=== PATIENT | female | born 1990 | race Caucasian/White ===

== ENCOUNTER 2017-04-23 17:11 | Emergency (ER) | payer OTHER ==
[~2017-04-23] VITALS: Ht 167.6 cm; Wt 85.7 kg
[~2017-04-23 17:11] MED LIST: DIAZ2TAB PO; GABA600T2 PO; HYDR-3138 PO; NORE1TAB PO; SCOP1PAT ID
[2017-04-23] MEDS ORDERED: ACID REFLUX MED PO (17:39)
[2017-04-23] MEDS ORDERED: KETOROLAC 30 MG/1 ML ONE (17:50)
[2017-04-23] MEDS ORDERED: KETOROLAC 30 MG/1 ML IM ONE (18:00)
[2017-04-23 19:19] VITALS: BP 116/83
== END 2017-04-23 19:07 | disposition home or self-care (01) ==
LOC: ED 18:28
DX: S39.012A Strain of muscle, fascia and tendon of lower back, initial encounter (principal); S29.012A Strain of muscle and tendon of back wall of thorax, initial encounter; V43.52XA Car driver injured in collision with other type car in traffic accident, initial encounter; Y93.89 Activity, other specified; Y92.89 Other specified places as the place of occurrence of the external cause; Y99.8 Other external cause status
CPT/HCPCS: 72072; 72110; 72125; 96372; 99284; J1885

== ENCOUNTER → 2018-12-15 | Outpatient (CLI) | payer OTHER ==
[~2018-12-15] MED LIST changes: +ACID REFLUX MED PO; -GABA600T2 PO; +GABA600T7 PO; -HYDR-3138 PO; +HYDR-3237 PO; -SCOP1PAT ID; +SCOP1PAT11 ID
== END | disposition home or self-care (01) ==
LOC: CFH 06:45
PROVIDERS: ATTEND Physician Assistant
DX: K76.9 Liver disease, unspecified (principal); E78.5 Hyperlipidemia, unspecified; E55.9 Vitamin D deficiency, unspecified; G43.909 Migraine, unspecified, not intractable, without status migrainosus; J45.998 Other asthma
CPT/HCPCS: 76700

== ENCOUNTER 2019-01-11 15:13 | Outpatient (CLI) | payer OTHER ==
[2019-01-11] MEDS ORDERED: RANI150T4 PO (15:48)
[2019-01-11] MEDS ORDERED: CYCL5TAB PO (15:48)
[2019-01-11] MEDS ORDERED: OMEP20TA62 PO (15:48)
[2019-01-11] MEDS ORDERED: DICY10CA3 PO (15:48)
[2019-01-11] MEDS ORDERED: PROP80TA PO (15:48)
[2019-01-11] MEDS ORDERED: PANTOPRAZOLE PO-COUM (15:48)
== END 2019-01-11 23:59 | disposition home or self-care (01) ==
LOC: STAR 15:13
PROVIDERS: ATTEND Thoracic Surgery (Cardiothoracic Vascular Surgery)
DX: Z02.9 Encounter for administrative examinations, unspecified (principal)

== ENCOUNTER 2019-01-19 05:46 | Observation (INO) | payer OTHER ==
[~2019-01-19] VITALS: Ht 167.6 cm; Wt 80.9 kg
[~2019-01-19 05:46] MED LIST changes: +CYCL5TAB PO; +DICY10CA3 PO; +OMEP20TA62 PO; +PANTOPRAZOLE PO-COUM; +PROP80TA PO; +RANI150T4 PO
[2019-01-19] MEDS ORDERED: LACTATED RINGERS 1,000 ML IV SCH (06:35)
[2019-01-19 06:40] VITALS: BP 97/65
[2019-01-19] MEDS ORDERED: BUPIVACAINE/PF-EPI 0.5% 1:200K ONE (06:48)
[2019-01-19] MEDS ORDERED: FENTANYL PF 250 MCG/5ML ONE (07:01)
[2019-01-19] MEDS ORDERED: MIDAZOLAM 1 MG/ML, 2ML ONE (07:01)
[2019-01-19] MEDS ORDERED: GABAPENTIN 300 MG CAPSULE ONE ×2 (07:06→10:16)
[2019-01-19] MEDS ORDERED: APREPITANT 40 MG CAPSULE ONE ×2 (07:06→10:16)
[2019-01-19] MEDS ORDERED: PROPOFOL 50 ML ONE (07:17)
[2019-01-19] MEDS ORDERED: PROPOFOL 10 MG/ML, 20ML ONE (07:57)
[2019-01-19] MEDS ORDERED: ROCURONIUM 10MG/ML,5ML ONE (07:57)
[2019-01-19] MEDS ORDERED: ONDANSETRON 2MG/ML, 2ML ONE (07:57)
[2019-01-19] MEDS ORDERED: CEFOTETAN PMX 2GM/50ML 50 ML ONE (07:57)
[2019-01-19] MEDS ORDERED: PHENYLEPHRINE 10 MG/ML ONE (07:57)
[2019-01-19] MEDS ORDERED: DEXAMETHASONE 4 MG/ML, 1ML ONE (07:57)
[2019-01-19] MEDS ORDERED: LIDOCAINE-MPF 2% ,5ML ONE (07:57)
[2019-01-19] MEDS ORDERED: HYDROmorphone 2 MG/ML, 1ML IVPush PRN (08:00)
[2019-01-19] MEDS ORDERED: OXYcodone 5 MG/5 ML ORAL.SOL UDC PO PRN (08:00)
[2019-01-19] MEDS ORDERED: PROMETHAZINE 25 MG/ML, 1ML IV PRN (08:00)
[2019-01-19] MEDS ORDERED: ACETAMINOPHEN 325 MG TABLET PO PRN (08:00)
[2019-01-19] MEDS ORDERED: HALOPERIDOL 5 MG/ML IV PRN (08:00)
[2019-01-19] MEDS ORDERED: MEPERIDINE/PF 25MG/0.5ML IVPush PRN (08:00)
[2019-01-19] MEDS ORDERED: FENTANYL PF 100 MCG/2ML ONE ×2 (08:20→09:14)
[2019-01-19] MEDS ORDERED: SUGAMMADEX 200 MG/2 ML IVPush ONE (08:28)
[2019-01-19] MEDS: LACTATED RINGERS 1,000 ML IV SCH ×2 (08:44→16:44)
[2019-01-19] MEDS ORDERED: HYDROcodone/APAP 7.5-325MG/15ML UDC PO PRN (09:00)
[2019-01-19] MEDS ORDERED: HALOPERIDOL 5 MG/ML ONE (09:14)
[2019-01-19] MEDS: FENTANYL PF 100 MCG/2ML IV PRN ×2 (09:19→09:35)
[2019-01-19] MEDS: HYDROcodone/APAP 7.5-325MG/15ML UDC PO PRN ×3 (11:03→19:56)
[2019-01-19] MEDS: morphine SULFATE 10 MG/ML, 1ML IVPush PRN ×3 (13:08→22:51)
[2019-01-19] MEDS ORDERED: SCOPOLAMINE PATCH, 1.5MG PATCH.TD72 TD ONE ×2 (13:45→14:00)
[2019-01-19] MEDS ORDERED: PROMETHAZINE 25 MG/ML, 1ML IM ONE (14:00)
[2019-01-19] MEDS ORDERED: HYDROcodone/APAP 7.5-325MG/15ML UDC ONE (15:30)
[2019-01-19 18:00] VITALS: BP 108/77
[2019-01-19 19:21] VITALS: BP 118/79
[2019-01-19] MEDS: ONDANSETRON 2MG/ML, 2ML IVPush PRN (19:54)
[2019-01-20] MEDS: LACTATED RINGERS 1,000 ML IV SCH ×3 (00:44→16:12)
[2019-01-20 01:15] VITALS: BP 102/65
[2019-01-20] MEDS: ONDANSETRON 2MG/ML, 2ML IVPush PRN (02:03)
[2019-01-20] MEDS: morphine SULFATE 10 MG/ML, 1ML IVPush PRN ×5 (02:04→21:27)
[2019-01-20 04:44] VITALS: BP 104/69
[2019-01-20] MEDS: HYDROcodone/APAP 7.5-325MG/15ML UDC PO PRN (05:12)
[2019-01-20 07:15] VITALS: BP 114/74
[2019-01-20] MEDS ORDERED: DIPHENHYDRAMINE 50 MG/ML, 1ML IVPush PRN (09:30)
[2019-01-20] MEDS ORDERED: DIPHENHYDRAMINE 12.5MG/5ML, 10ML UDC PO PRN (09:30)
[2019-01-20] MEDS ORDERED: OXYC5CAP2 PO (09:44)
[2019-01-20] MEDS ORDERED: HYDR15SO3 PO (09:48)
[2019-01-20] MEDS: OXYcodone IR 5MG TABLET PO PRN ×4 (11:17→20:09)
[2019-01-20 13:15] VITALS: BP 115/75
[2019-01-20 19:02] VITALS: BP 106/79
[2019-01-21] MEDS: OXYcodone IR 5MG TABLET PO PRN ×5 (00:18→17:01)
[2019-01-21 00:33] VITALS: BP 101/74
[2019-01-21] MEDS: LACTATED RINGERS 1,000 ML IV SCH ×3 (00:44→15:05)
[2019-01-21] MEDS: morphine SULFATE 10 MG/ML, 1ML IVPush PRN (02:56)
[2019-01-21 07:40] VITALS: BP 113/78
[2019-01-21 14:15] VITALS: BP 120/84
== END 2019-01-21 17:40 | disposition home or self-care (01) ==
LOC: OUT 05:46 → ORIP 09:12 → 4NOR 17:49
PROVIDERS: ADMIT Thoracic Surgery (Cardiothoracic Vascular Surgery); ATTEND Thoracic Surgery (Cardiothoracic Vascular Surgery)
DX: K44.9 Diaphragmatic hernia without obstruction or gangrene (principal); K21.9 Gastro-esophageal reflux disease without esophagitis; K82.8 Other specified diseases of gallbladder
CPT/HCPCS: 43280; 47562; 88304; 96374; 96375; 96376; G0378; J1100; J1630; J2250; J2270; J2370; J2405; J2550; J2704; J3010; J3490; J7120; J8501

== ENCOUNTER 2019-01-23 09:29 | Emergency (ER) | payer OTHER ==
[~2019-01-23] VITALS: Ht 167.6 cm; Wt 77.0 kg
[~2019-01-23 09:29] MED LIST changes: +HYDR15SO3 PO; +OXYC5CAP2 PO
[2019-01-23 09:36] VITALS: BP 112/78
--- NOTE | 2019-01-23 09:56 | NUR ---
PT TO ED FOR LEFT CALF PAIN AND SOB WITH LEFT SIDED CP STARTING THIS AM. PT HAD HIATAL HERNIA REPAIR ON 01/19/2019. CONNECTED TO MONITORS. VSS. EDMD ASSESSMENT COMPLETE. AWAITING ORDERS.
[2019-01-23] MEDS ORDERED: OXYcodone/APAP 5/325MG TABLET ONE ×2 (10:00→10:08)
[2019-01-23] MEDS ORDERED: ONDANSETRON ODT 4 MG PO ONE (10:00)
[2019-01-23] MEDS ORDERED: ONDANSETRON ODT 4 MG ONE (10:00)
[2019-01-23] MEDS: OXYcodone/APAP 5/325MG TABLET PO ONE ×2 (10:07→10:11)
[2019-01-23 10:34] LABS: BASOPHILS # (AUTO) 0.04 x10^3/uL (0-0.1); BASOPHILS % (AUTO) 0 % (0-1); EOSINOPHILS # (AUTO) 0.26 x10^3/uL (0-0.4); EOSINOPHILS % (AUTO) 3 % (1-7); LYMPHOCYTES # (AUTO) 1.57 x10^3/uL (1-3.4); LYMPHOCYTES % (AUTO) 17 % (22-44); MD NO; MEAN CORPUSCULAR HEMOGLOBIN 30.9 pg (27.0-34.8); MEAN CORPUSCULAR VOLUME 90.9 fL (80-100); MEAN PLATELET VOLUME 7.2 fL (7.4-10.4); MONOCYTES % (AUTO) 5 % (2-9); NEUTROPHILS # (AUTO) 6.82 x10^3/uL (1.8-6.8); NEUTROPHILS % (AUTO) 74 % (42-75); PLATELET COUNT 403 x10^3/uL (130-400); RED BLOOD COUNT 4.66 x10^6/uL (3.82-5.3); RED CELL DISTRIBUTION WIDTH 13.1 % (9.6-15.2)
[2019-01-23 10:42] LABS: ALANINE AMINOTRANSFERASE 44 U/L (12-78); ALBUMIN 3.8 g/dL (3.4-5.0); ANION GAP 4 mmol/L (5-15); CALCIUM 9.3 mg/dL (8.5-10.1); CHLORIDE 104 mmol/L (98-107); CREATININE 0.76 mg/dL (0.55-1.02)
[2019-01-23 10:44] LABS: ALKALINE PHOSPHATASE 71 U/L (45-117); BILIRUBIN,TOTAL 0.6 mg/dL (0.2-1.0); TOTAL PROTEIN 7.2 g/dL (6.4-8.2)
--- NOTE | 2019-01-23 10:50 | NUR ---
edmd to bedside to update on poc. awaiting dispo.
== END 2019-01-23 11:37 | disposition home or self-care (01) ==
LOC: ED 10:51
DX: M79.662 Pain in left lower leg (principal); R07.2 Precordial pain; K21.9 Gastro-esophageal reflux disease without esophagitis; Z90.49 Acquired absence of other specified parts of digestive tract; Z90.710 Acquired absence of both cervix and uterus; Z98.890 Other specified postprocedural states
CPT/HCPCS: 36415; 71045; 80053; 83690; 85025; 93005; 93971; 99284; Q0162

== ENCOUNTER → 2019-03-15 | Outpatient (CLI) | payer OTHER | END | disposition home or self-care (01) | LOC: CFH 07:22 | PROVIDERS: ATTEND Surgery | DX: K22.8 Other specified diseases of esophagus (principal) | CPT/HCPCS: 74241 ==

== ENCOUNTER → 2020-11-09 | Outpatient (CLI) | payer OTHER ==
[~2020-11-09] MED LIST changes: +AMIT50TA PO; +DILT60CA PO; +EMGALITY; +ESTRADIOL; +PANT40TA6 PO
== END | disposition home or self-care (01) ==
LOC: STAR 14:36
PROVIDERS: ATTEND Internal Medicine Gastroenterology
DX: Z20.828 Contact with and (suspected) exposure to other viral communicable diseases (principal); R10.9 Unspecified abdominal pain
CPT/HCPCS: 87635